=== PATIENT | female | born 1970 | race Caucasian/White ===

== ENCOUNTER 2022-02-15 08:32 | Day surgery (SDC) | payer BC ==
[~2022-02-15] VITALS: Ht 170.2 cm; Wt 61.9 kg
[2022-02-15] MEDS ORDERED: GABA300 (09:13)
[2022-02-15] MEDS ORDERED: SUMA5NI (09:14)
== END 2022-02-15 11:05 | disposition home or self-care (01) ==
LOC: ORSCSDS 08:32
PROVIDERS: Internal Medicine Gastroenterology
PROC: 0DJD8ZZ Inspection of Lower Intestinal Tract, Via Natural or Artificial Opening Endoscopic (ICD-10-PCS; principal; 2022-02-15 10:00)
DX: Z12.11 Encounter for screening for malignant neoplasm of colon (principal); Z79.899 Other long term (current) drug therapy
CPT/HCPCS: J2704; J7120